=== PATIENT | female | born 1990 | race Caucasian/White ===

== ENCOUNTER → 2017-09-08 | Outpatient (CLI) | payer OTHER ==
[2015-10-21 13:04] VITALS: BP 95/64
[~2017-09-08] MED LIST: IBUP-1060 PO
--- NOTE | 2017-09-08 16:25 | RAD ---
Ultrasound pelvis Indication: Anatomy scan. Technique: Grayscale, color Doppler and spectral waveform ultrasound images of the pelvis. Comparison: None Findings: Single intrauterine is noted in breech position at the time of scanning. Cardiac activity is demonstrated at the rate of 150 bpm. Biparietal diameter measures 4.73 cm corresponding to estimated gestation age of 20 weeks 2 days. Placenta is posterior and fundal. Feet, legs, bladder, kidneys, spine, stomach, four-chamber heart, arms, cord insertion are visualized. Three-vessel cord noted. FRIEDA equals 19.4 cm which is within normal limits. Femoral length measures 3.28 cm corresponding to estimated gestation age of 20 weeks 2 days. Abdominal circumference measures 15.68 cm corresponding to estimated gestation age of 20 weeks 6 days. Cervix measures 3.7 cm in length and is within normal limits. Estimated weight 358 g. Estimated due date 01/23/2018. Female genitalia demonstrated. Impression: Single viable intrauterine with gestation age of 20 weeks 3 days and due date of 01/23/2018.
== END | disposition home or self-care (01) ==
LOC: US 12:11
PROVIDERS: ATTEND Obstetrics & Gynecology
DX: O09.92 Supervision of high risk pregnancy, unspecified, second trimester (principal); Z3A.20 20 weeks gestation of pregnancy
CPT/HCPCS: 76805

== ENCOUNTER 2017-09-29 18:38 | Observation (INO) | payer OTHER ==
[2017-09-29] MEDS: IV RINGERS,LACTATED 1000ML 1,000 ML IV (19:28)
[2017-09-29 19:40] LABS: BILIRUBIN,URINE NEGATIVE (NEG); CLARITY,URINE CLEAR; COLOR,URINE YELLOW; GLUCOSE,URINE NEGATIVE (NEG); NITRITE,URINE NEGATIVE (NEG); PH,URINE 6.5; PROTEIN,URINE NEGATIVE (NEG-TRACE)
[2017-09-29 19:44] LABS: BACTERIA,URINE FEW /HPF (0-FEW); RBC,URINE OCC /HPF (0-2); SQUAMOUS EPITHELIAL CELL,UR MANY /LPF
[2017-09-29 19:45] LABS: BARBITURATES NEG (NEG); BENZODIAZEPINES NEG (NEG); CANNABINOIDS POS (NEG); COCAINE NEG (NEG); METHADONE NEG (NEG); OPIATES NEG (NEG); PHENCYCLIDINE NEG (NEG)
[2017-09-29 19:46] LABS: AMPHETAMINE/METHAMPHETAMINE NEG (NEG); ETHANOL, URINE NEG (NEG)
[2017-09-29] MEDS ORDERED: IV RINGERS,LACTATED 500ML 1,000 ML IV (20:00)
[2017-09-29] MEDS: ONDANSETRON PF 4 MG/2 ML VIAL. IV (20:23)
[2017-09-29] MEDS: PANTOPRAZOLE IV PUSH 40 MG VIAL. IVP (20:34)
[2017-09-29] MEDS: IV RINGERS,LACTATED 500ML 500 ML IV (21:32)
== END 2017-09-29 22:44 | disposition home or self-care (01) ==
LOC: 3 SO LND 18:38
DX: O21.2 Late vomiting of pregnancy (principal); O26.892 Other specified pregnancy related conditions, second trimester; R51 Headache; R11.0 Nausea; R50.9 Fever, unspecified; Z3A.23 23 weeks gestation of pregnancy
CPT/HCPCS: 80307; 81001; 87086; 96361; 96374; 96375; C9113; G0378; G0379; J2405; J7120

== ENCOUNTER 2017-12-06 20:34 | Observation (INO) | payer OTHER ==
[2017-12-06 21:33] LABS: BILIRUBIN,URINE NEGATIVE (NEG); CLARITY,URINE CLEAR; COLOR,URINE YELLOW; GLUCOSE,URINE NEGATIVE (NEG); NITRITE,URINE NEGATIVE (NEG); PH,URINE 7.5; PROTEIN,URINE NEGATIVE (NEG-TRACE)
[2017-12-06 21:41] LABS: BACTERIA,URINE FEW /HPF (0-FEW); RBC,URINE 0 /HPF (0-2); SQUAMOUS EPITHELIAL CELL,UR MOD /LPF; WBC,URINE OCC /HPF (0-4)
[2017-12-06 21:42] LABS: BARBITURATES NEG (NEG); BENZODIAZEPINES NEG (NEG); CANNABINOIDS POS (NEG); COCAINE NEG (NEG); METHADONE NEG (NEG); OPIATES NEG (NEG); PHENCYCLIDINE NEG (NEG)
[2017-12-06 21:43] LABS: AMPHETAMINE/METHAMPHETAMINE NEG (NEG); ETHANOL, URINE NEG (NEG)
[2017-12-06] MEDS: IV RINGERS,LACTATED 1000ML 1,000 ML IV (22:05)
== END 2017-12-06 23:09 | disposition home or self-care (01) ==
LOC: 3 SO LND 20:34
DX: O62.9 Abnormality of forces of labor, unspecified (principal); Z3A.32 32 weeks gestation of pregnancy; Z79.899 Other long term (current) drug therapy
CPT/HCPCS: 80307; 81001; 96360; G0378; G0379; J7120

== ENCOUNTER 2018-01-05 23:34 | Observation (INO) | payer OTHER ==
[2018-01-05] MEDS ORDERED: IV RINGERS,LACTATED 1000ML 1,000 ML IV (23:42)
[2018-01-06 00:08] LABS: BILIRUBIN,URINE NEGATIVE (NEG); CLARITY,URINE CLOUDY; COLOR,URINE YELLOW; GLUCOSE,URINE NEGATIVE (NEG); NITRITE,URINE NEGATIVE (NEG); PH,URINE 7.5; PROTEIN,URINE NEGATIVE (NEG-TRACE)
[2018-01-06 00:13] LABS: AMORPHOUS SEDIMENT,UR PRESENT /HPF; BACTERIA,URINE FEW /HPF (0-FEW); RBC,URINE OCC /HPF (0-2); SQUAMOUS EPITHELIAL CELL,UR MANY /LPF
[2018-01-06 00:15] LABS: BARBITURATES NEG (NEG); BENZODIAZEPINES NEG (NEG); CANNABINOIDS POS (NEG); COCAINE NEG (NEG); METHADONE NEG (NEG); OPIATES NEG (NEG); PHENCYCLIDINE NEG (NEG)
[2018-01-06 00:16] LABS: AMPHETAMINE/METHAMPHETAMINE NEG (NEG); ETHANOL, URINE NEG (NEG)
== END 2018-01-06 01:39 | disposition home or self-care (01) ==
LOC: 3 SO LND 23:34
DX: O62.9 Abnormality of forces of labor, unspecified (principal); Z3A.37 37 weeks gestation of pregnancy
CPT/HCPCS: 80307; 81001; G0378; G0379

== ENCOUNTER 2018-03-05 06:35 | Day surgery (SDC) | payer OTHER ==
[2018-03-05] MEDS ORDERED: MORPHINE SULFATE 2 MG/ML DISP.SYRIN. IV (07:00)
[2018-03-05] MEDS ORDERED: fentaNYL PF VIAL 100 MCG/2 ML VIAL IV (07:00)
[2018-03-05] MEDS ORDERED: ONDANSETRON PF 4 MG/2 ML VIAL. IV (07:00)
[2018-03-05] MEDS ORDERED: LIDOCAINE 1% PF 2 ML VIAL. ID (07:00)
[2018-03-05 07:14] LABS: NEG OBC UR NEG; POS OBC UR POS; U PREG PATIENT NEGATIVE (NEG)
[2018-03-05] MEDS: IV RINGERS,LACTATED 1000ML 1,000 ML IV (07:24)
[2018-03-05] MEDS ORDERED: ROCURONIUM 50 MG/5 ML VIAL. (09:14)
[2018-03-05] MEDS ORDERED: fentaNYL PF VIAL 100 MCG/2 ML VIAL ×3 (09:14→11:26)
[2018-03-05] MEDS ORDERED: PROPOFOL 20 ML IV (09:15)
[2018-03-05] MEDS ORDERED: ONDANSETRON PF 4 MG/2 ML VIAL. (09:15)
[2018-03-05] MEDS ORDERED: DEXAMETHASONE SOD PHOS 20 MG/5 ML VIAL. (09:15)
[2018-03-05] MEDS ORDERED: SEVOFLURANE 16 TO 30 MINUTES. IH (09:15)
[2018-03-05] MEDS ORDERED: NEOSTIGMINE 10 MG/10 ML VIAL. ×2 (09:37→09:38)
[2018-03-05] MEDS ORDERED: GLYCOPYRROLATE 1 MG/5 ML VIAL. (09:37)
[2018-03-05] MEDS ORDERED: KETOROLAC 30 MG/ML INJ FOR OR. INJ (09:39)
[2018-03-05] MEDS: BUPIVACAINE-EPI 0.25%-1:200000 50 ML VIAL. (09:43)
[2018-03-05] MEDS ORDERED: PROCHLORPERAZINE 10 MG/2 ML VIAL. (10:31)
[2018-03-05] MEDS: fentaNYL PF VIAL 100 MCG/2 ML VIAL IV ×3 (10:44→11:33)
[2018-03-05] MEDS: PROCHLORPERAZINE 10 MG/2 ML VIAL. IV (11:00)
[2018-03-05] MEDS ORDERED: oxyCODONE/APAP 5/325 1 TAB TABLET PO (11:00)
[2018-03-05] MEDS: oxyCODONE/APAP 5/325 1 TAB TABLET PO (11:26)
== END 2018-03-05 12:18 | disposition home or self-care (01) ==
LOC: SURG 06:35
DX: Z30.2 Encounter for sterilization (principal); Z91.040 Latex allergy status; Z90.49 Acquired absence of other specified parts of digestive tract; F32.9 Major depressive disorder, single episode, unspecified; Z72.89 Other problems related to lifestyle; F17.200 Nicotine dependence, unspecified, uncomplicated; F19.90 Other psychoactive substance use, unspecified, uncomplicated
CPT/HCPCS: 58671; 81025; J0780; J1100; J1885; J2405; J2704; J2710; J3010; J3490

== ENCOUNTER 2018-07-02 06:26 | Day surgery (SDC) | payer OTHER ==
[~2018-07-02 06:26] MED LIST changes: +FERRIC SUBSULFATE 8 ML SOL.W.APPL TP ONE; +HYDR-971 PO; +LIDOCAINE 1%/EPI 1:100,000 20 ML VIAL. ONE; +NAPR-514 PO; +OXYC-323 PO
[2018-07-02] MEDS ORDERED: ONDANSETRON PF 4 MG/2 ML VIAL. IV PRN (07:00)
[2018-07-02] MEDS ORDERED: fentaNYL PF VIAL 100 MCG/2 ML VIAL IV PRN ×2 (07:00)
[2018-07-02] MEDS ORDERED: LIDOCAINE 1% PF 2 ML VIAL. ID PRN (07:00)
[2018-07-02] MEDS ORDERED: PROCHLORPERAZINE 10 MG/2 ML VIAL. IV PRN (07:00)
[2018-07-02] MEDS ORDERED: MORPHINE SULFATE 2 MG/ML VIAL. IV PRN (07:00)
[2018-07-02] MEDS ORDERED: HYDROmorphone 2 MG/ML VIAL IV PRN (07:00)
[2018-07-02] MEDS ORDERED: IV RINGERS,LACTATED 1000ML 1,000 ML IV SCH (07:00)
[2018-07-02 07:11] LABS: U PREG PATIENT NEGATIVE (NEG)
[2018-07-02] MEDS ORDERED: FAMOTIDINE 20 MG/2 ML VIAL ONE (07:29)
[2018-07-02] MEDS ORDERED: ONDANSETRON PF 4 MG/2 ML VIAL. ONE (07:29)
[2018-07-02] MEDS ORDERED: DEXAMETHASONE SOD PHOS 20 MG/5 ML VIAL. ONE (07:29)
[2018-07-02] MEDS ORDERED: PROPOFOL 20 ML IV ONE (07:30)
[2018-07-02] MEDS ORDERED: KETOROLAC 30 MG/ML INJ FOR OR. INJ ONE ×2 (07:30→08:28)
[2018-07-02] MEDS ORDERED: MIDAZOLAM HCL/PF 2 MG/2 ML VIAL. ONE ×2 (07:30→07:51)
[2018-07-02] MEDS ORDERED: LIDOCAINE 2% PF Vial for OR 5 ML VIAL. ONE (07:30)
--- NOTE | 2018-07-02 08:29 | DISCH ---
DISCHARGE INSTRUCTIONS Condition on Discharge Condition on Discharge: Stable Activity After Discharge Activity Instructions for Disc: Activity as tolerated Lifting Instructions after Dis: No heavy lifting Exercise Instruction after Dis: Progress as tolerated Driving Instructions after Dis: Do not drive today, Other, see below Diet after Discharge Diet after Discharge: Regular Contacting the DRShankar after DC Call your doctor for: Concerns you may have Follow-Up Follow up with: Dr. Cullen in 2 wks Treatment/Equipment after DC Adaptive Equipment Issued: None MICHAEL CULLEN Jr, MD Jul 02, 2018 08:29
--- NOTE | 2018-07-02 08:29 | PDOC ---
BRIEF OPERATIVE NOTE Date: Jul 02, 2018 Pre-Op Diagnosis Cervical Dysplasia Post-Op Diagnosis SAme Procedure Performed Cervical cone bx Surgeon Dr. Cullen Anesthesia Type: General Blood Loss Less than 10 ml Specimens Obtained cervical cone bx Findings cervical dysplasia Complications none Operative Note see dictation MICHAEL CULLEN Jr, MD Jul 02, 2018 08:29
[2018-07-02] MEDS ORDERED: SEVOFLURANE 16 TO 30 MINUTES. IH ONE (08:34)
[2018-07-02] MEDS ORDERED: HYDR-971 PO (08:37)
[2018-07-02] MEDS ORDERED: HYDROcodone/APAP 5/325MG 1 TAB TABLET PO ONE ×2 (09:00)
[2018-07-02 10:15] VITALS: BP 111/63
--- NOTE | 2018-07-02 10:43 | OP ---
DATE OF SURGERY: PREOPERATIVE DIAGNOSIS: Cervical dysplasia. POSTOPERATIVE DIAGNOSIS: Cervical dysplasia. PROCEDURE: Cervical cone biopsy. SURGEON: Michael Lezama M.D. ANESTHESIA: GETA. ESTIMATED BLOOD LOSS: Less than 10 mL. COMPLICATIONS: None. FINDINGS: Cervical dysplasia. SUMMARY: A 27-year-old with LYUDMILA 1 on colposcopic biopsy, requiring cervical cone biopsy. She was counseled on the risks, benefits and expectations and voiced clear understanding to proceed. DESCRIPTION OF PROCEDURE: The patient was taken to the surgery suite and placed in dorsal lithotomy position, where she was prepped with Betadine solution and draped in a sterile fashion. After adequate anesthesia, weighted speculum and curved Ramah placed vaginally. The anterior lip of the cervix grasped with a single tooth tenaculum. Cervix was injected with lidocaine 1% with epinephrine in circumferential manner. A 2-0 Vicryl sutures were placed at 3 o'clock and 9 o'clock position to help stabilize the cervix. Cervical cone biopsy was performed with scalpel, removing anterior and posterior lip of the cervix in a cone-like fashion. The remaining cervix was cauterized with Bovie cautery and Monsel solution was also applied for better hemostasis. The single tooth tenaculum and weighted speculum were removed. The patient tolerated the procedure well and was sent to recovery room in stable condition. Sponge and needle count correct x 3. MICHAEL LEZAMA MD DR: SILVANA/dania JOB#: [id number] / [id number]
== END 2018-07-02 10:20 | disposition home or self-care (01) ==
LOC: SURG 06:26
PROVIDERS: ATTEND Obstetrics & Gynecology
DX: N87.9 Dysplasia of cervix uteri, unspecified (principal); F32.9 Major depressive disorder, single episode, unspecified; F17.200 Nicotine dependence, unspecified, uncomplicated; Z72.89 Other problems related to lifestyle; Z90.49 Acquired absence of other specified parts of digestive tract; Z91.040 Latex allergy status; Z98.890 Other specified postprocedural states
CPT/HCPCS: 57522; 81025; A7015; J0690; J1100; J1885; J2001; J2250; J2405; J2704; J3490; S0028

== ENCOUNTER → 2021-04-06 | Outpatient (CLI) | payer OTHER ==
[~2021-04-06] MED LIST changes: -FERRIC SUBSULFATE 8 ML SOL.W.APPL TP ONE; +HYDR-3164 PO; -HYDR-971 PO; -LIDOCAINE 1%/EPI 1:100,000 20 ML VIAL. ONE; +MEDR10TA3 PO; -OXYC-323 PO; +OXYC1TAB15 PO
[2021-04-06 12:35] LABS: BASO % 0 % (0-3); BILIRUBIN,URINE NEGATIVE (NEG); CLARITY,URINE CLEAR; COLOR,URINE YELLOW; EOS # 0.1 x10^3/uL (0.0-0.7); EOS % 1 % (0-3); HEMATOCRIT 42.9 % (36.0-47.0); HEMOGLOBIN 14.5 g/dL (12.0-15.5); LYMPH # 2.9 x10^3/uL (1.0-4.8); LYMPH % 34 % (24-48); MEAN CORPUSCULAR HEMOGLOBIN 31 pg (25-35); MEAN CORPUSCULAR HGB CONC 34 g/dL (31-37); MEAN CORPUSCULAR VOLUME 91 fL (79-100); MONO # 0.5 x10^3/uL (0.0-1.1); MONO % 6 % (0-9); NEUT % 58 % (31-73); NITRITE,URINE NEGATIVE (NEG); PLATELET COUNT 238 x10^3/uL (140-400); PROTEIN,URINE NEGATIVE (NEG-TRACE); RED BLOOD COUNT 4.73 x10^6/uL (3.50-5.40); RED CELL DISTRIBUTION WIDTH 13.4 % (11.5-14.5); UROBILINOGEN,URINE 0.2 mg/dL (0.2 mg/dL); WHITE BLOOD COUNT 8.5 x10^3/uL (4.0-11.0)
[2021-04-06 12:41] LABS: ALBUMIN 4.1 g/dL (3.4-5.0); ALBUMIN/GLOBULIN RATIO 1.4 (1.0-1.7); CREATININE 0.8 mg/dL (0.6-1.0); GFR 85.4; POTASSIUM 4.2 mmol/L (3.5-5.1); TOTAL BILIRUBIN 0.3 mg/dL (0.2-1.0); TOTAL PROTEIN 7.1 g/dL (6.4-8.2)
[2021-04-06 12:48] LABS: BACTERIA,URINE MODERATE /HPF (0-FEW)
== END ==
LOC: SURGPAT 11:13
PROVIDERS: ATTEND Obstetrics & Gynecology
DX: Z01.818 Encounter for other preprocedural examination (principal); Z90.722 Acquired absence of ovaries, bilateral; Z90.710 Acquired absence of both cervix and uterus
CPT/HCPCS: 36415; 80053; 81001; 85025; 87086

== ENCOUNTER → 2021-04-11 | Outpatient (CLI) | payer OTHER ==
[~2021-04-11] MED LIST changes: +IBUP-571 PO
== END ==
LOC: LAB 09:32
PROVIDERS: ATTEND Obstetrics & Gynecology
DX: Z01.812 Encounter for preprocedural laboratory examination (principal); Z20.822 Contact with and (suspected) exposure to COVID-19
CPT/HCPCS: U0003; U0005

== ENCOUNTER 2021-04-12 06:03 | Observation (INO) | payer OTHER ==
[2021-04-12] VITALS (11 sets, daily range): BP systolic 94–112; BP diastolic 55–70
[~2021-04-12] VITALS: Ht 157.5 cm; Wt 42.9 kg
[~2021-04-12 06:03] MED LIST changes: +HYDROmorphone 2 MG/ML VIAL IVP PRN; -IBUP-571 PO; +IV RINGERS,LACTATED 1000ML 1,000 ML IV SCH; +MORPHINE SULFATE 2 MG/ML INJ. IVP PRN; +PROCHLORPERAZINE 10 MG/2 ML VIAL. IVP PRN; +ceFAZolin SODIUM IV Push 1 GM VIAL. IVP PRN; +fentaNYL PF VIAL 100 MCG/2 ML VIAL IVP PRN
[2021-04-12] MEDS ORDERED: ROCURONIUM 50 MG/5 ML VIAL. ONE (06:47)
[2021-04-12] MEDS ORDERED: DEXAMETHASONE SOD PHOS 4 MG/ML VIAL ONE (06:48)
[2021-04-12] MEDS ORDERED: LIDOCAINE 2% PF 5 ML VIAL. ONE ×2 (06:48→09:34)
[2021-04-12] MEDS ORDERED: ONDANSETRON PF 4 MG/2 ML VIAL. ONE (06:48)
[2021-04-12] MEDS ORDERED: PROPOFOL 10 MG/ML (20ML) VIAL. IV ONE (06:48)
[2021-04-12] MEDS ORDERED: MIDAZOLAM HCL/PF 2 MG/2 ML VIAL. ONE (07:01)
[2021-04-12] MEDS ORDERED: fentaNYL PF VIAL 100 MCG/2 ML VIAL ONE ×2 (07:01→10:46)
[2021-04-12] MEDS ORDERED: KETAMINE HCL IN NACL, ISO-OSM 50 MG/5 ML SYRINGE ONE (07:01)
[2021-04-12] MEDS ORDERED: BUPIVACAINE-EPI 0.5%-1:200000 MPF 30 ML VIAL. ONE (07:02)
[2021-04-12] MEDS ORDERED: ESTROGENS, CONJ VAGINAL CREAM 30GM TUBE. ONE (07:02)
[2021-04-12] MEDS ORDERED: INDIGOTINDISULFONATE SODIUM 40 MG/5 ML AMPUL. ONE (07:02)
[2021-04-12] MEDS ORDERED: BUPIVACAINE-EPI 0.25%-1:200000 MPF 30 ML VIAL. INJ ONE (07:15)
[2021-04-12] MEDS ORDERED: HYDROmorphone 2 MG/ML VIAL ONE (08:35)
[2021-04-12] MEDS ORDERED: GLYCOPYRROLATE 1 MG/5 ML VIAL. ONE (08:35)
[2021-04-12] MEDS ORDERED: NEOSTIGMINE METHYLSULFATE 5 MG/5 ML SYRINGE. ONE (08:35)
[2021-04-12] MEDS ORDERED: SEVOFLURANE > 120 MINUTES. IH ONE (09:18)
--- NOTE | 2021-04-12 09:55 | PDOC ---
BRIEF OPERATIVE NOTE Date: Apr 12, 2021 Pre-Op Diagnosis pelvic pain, menorrhagia, polymenorrhea Post-Op Diagnosis same Procedure Performed LAVH/bilateral salpingectomy, lysis of adhesions and removal of surgical ceci Surgeon Dr. Ayla Adams Fibre Technologist MOISÉS Alvarez Anesthesiologist Dr. Youngblood Anesthesia Type: General Blood Loss 70cc IV Fluid 1L Urine Output 90cc via velasquez Specimens Obtained cervix, uterus, bilateral tubes Findings ceci splayed from prior appy normal uterus, bilateral tubes with clips falling off, normal ovaries appendix gone N RUQ liver area some L US ligament scarring and left sided adhesions that were taken down Complications none Operative Note [id number] AYLA ADAMS MD Apr 12, 2021 09:55
[2021-04-12] MEDS ORDERED: LACTULOSE 20 GM/30 ML SOLUTION. PO PRN (10:00)
[2021-04-12] MEDS ORDERED: SIMETHICONE 80 MG TAB.CHEW PO PRN (10:00)
[2021-04-12] MEDS ORDERED: NALOXONE 0.4 MG/ML VIAL. IV PRN (10:00)
[2021-04-12] MEDS ORDERED: MAGNESIUM HYDROXIDE 2,400 MG/30 ML ORAL.SUSP. PO PRN (10:00)
[2021-04-12] MEDS ORDERED: diphenhydrAMINE HCL 25 MG CAPSULE PO PRN (10:00)
[2021-04-12] MEDS ORDERED: diphenhydrAMINE 50 MG/ML VIAL IV PRN (10:00)
[2021-04-12] MEDS ORDERED: MAG HYDROX/ALUMINUM HYD/SIMETH 30 ML ORAL.SUSP PO PRN (10:00)
[2021-04-12] MEDS ORDERED: 0.9 % SODIUM CHLORIDE 10 ML DISP.SYRIN. IV PRN (10:00)
[2021-04-12] MEDS ORDERED: MORPHINE SULFATE 2 MG/ML INJ. IV PRN (10:00)
[2021-04-12] MEDS ORDERED: ONDANSETRON PF 4 MG/2 ML VIAL. IV PRN (10:00)
[2021-04-12] MEDS ORDERED: CALCIUM CARBONATE 500 MG TAB.CHEW PO PRN (10:00)
[2021-04-12] MEDS: fentaNYL PF VIAL 100 MCG/2 ML VIAL IVP PRN ×2 (10:49→11:01)
--- NOTE | 2021-04-12 11:12 | NUR ---
Arrived to unit by bed from PACU. Awake during transferred but now sedated. Received compazine prior to transfer. VS stable. SCD's on bilaterally. IVF's intact and infusing. Abdominal lap sites x's 3 d/i with ice pack. Side rails up x's 3 with call light in reach. Cont. monitor.
--- NOTE | 2021-04-12 12:55 | OP ---
DATE OF SURGERY: 04/12/2021 PREOPERATIVE DIAGNOSES: Pelvic pain, menorrhagia, polymenorrhea. POSTOPERATIVE DIAGNOSES: Pelvic pain, menorrhagia, polymenorrhea. PROCEDURE: Laparoscopic-assisted vaginal hysterectomy, bilateral salpingectomy, lysis of adhesions and removal of surgical ceci. SURGEON: Ayla Adams MD DIRECTOR STATE [facility]ARMAC[facility]: MOISÉS Alvarez ANESTHESIOLOGIST: Soham Youngblood MD ANESTHESIA: General. BLOOD LOSS: 70 mL. URINE OUTPUT: 90 mL via Larkin catheter. FLUIDS: 1 liter of crystalloid. SPECIMENS: Cervix; uterus; bilateral tubes, the left one was detached. FINDINGS: She had a small retroverted uterus ceci that had splayed on especially the anterior bladder area that were removed. Normal bilateral ovaries. Tubes were normal, but she had clips falling off of both of them that were hanging down in the cul-de-sac. She had some scarring on the left uterosacral ligament and then of course the adhesions on the left side to the IP ligament that were taken down. COMPLICATIONS: None. DESCRIPTION OF PROCEDURE: This patient was taken to the operating room where general anesthesia was placed. The patient was placed in a dorsal lithotomy position in [facility]. The patient's abdomen and vagina were both prepped and draped in the normal sterile fashion and a Larkin catheter had been inserted under sterile technique. Upon my arrival, a time-out was performed. Once everyone agreed on the patient, the site, the procedure, the antibiotics, the procedure was initiated. A bivalve speculum was placed in the patient's vagina. Single-tooth tenaculum was used to grasp the anterior lip of the cervix. 10 mL of 0.25% Marcaine with epinephrine was used to circumferentially inject around the cervix for both hemodissection and hemostatic purposes later. The Valtchev uterine manipulator was placed through the endocervical os, locked on the single-tooth tenaculum and the bivalve speculum was then removed. Top gloves were discarded and changed. Attention was then turned to the abdomen where a small infraumbilical skin incision was made over the existing scar. A curved Lauren was used to dissect through the subcuticular layer to the fascia. The 5 mm Visiport was placed in the abdominal cavity. Opening patient pressure was 2 mmHg. Carbon dioxide gas was used to appropriately insufflate the abdominal cavity to maintain a pressure of 15 mmHg. The overhead lights were dimmed. The patient was placed in Trendelenburg position. At this point, right and left lower quadrant ports were placed after transilluminating the abdominal wall, finding an area clear of any vasculature, making a small incision and placing 5 mm atraumatic trocars and under direct visualization, 4-5 mL of air were placed in the trocar cuff. Once this was done, the camera was moved laterally to look at the umbilical port. Once it was assured to be in and good, it was also insufflated with the 4-5 mL of air in the trocar cuff. At this point, right upper quadrant looked normal. The area where the appendix was had ceci on it appropriately, but some ceci have splayed into the abdominal cavity. A large area was on the bladder anteriorly, so these were cut off and removed. The clips were falling off both tubes. Ureters were seen coursing below in the pelvis normally. She had a little bit of scarring on the left uterosacral ligament and left bowel adhesions going down the left IP and almost to the round. Those were taken down as well. Both ureters were seen coursing low in the pelvis. So, since the ovaries were normal, we went above the ovary, below the tube with the LigaSure, doing bilateral salpingectomy, crossing the left uteroovarian pedicle and the left round ligament and then the same thing on the right, going above the right ovary below the tube, doing a salpingectomy, crossing the right uteroovarian pedicle and then the right round ligament, all with the LigaSure. Once this was done, the bladder flap was created sharply pushing the uterus cephalad to the head of the bed and then picking up the bladder flap and using the monopolar hook to go across and create the bladder flap sharply and pulling it down. The uterine vessels were obtained on the right side, staying inside that pedicle, hugging posteriorly, going through the cardinal and broad ligaments and then crossing contralaterally, getting the uterines on the left side and hugging the uterus and staying vertical inside that pedicle through the cardinal and broad ligaments down to the uterosacral. The uterus was completely blanched and free. There was no bleeding. The uterus was completely free and blanched. So, all instruments were removed from the abdomen and attention was turned vaginally. The single tooth and Valtchev were removed. A weighted speculum was placed in the patient's vagina. Thyroid Darrius clamps were placed on the anterior and posterior lips of the cervix respectively. A scalpel was used to make a circumferential incision in the cervix and the posterior cul-de-sac was sharply entered with curved Gonzalez scissors. A #0 Vicryl stitch was used to secure the posterior peritoneum here to the vaginal cuff. It was tagged with a curved Lauren clamp. The needle was cut and passed off. The short weighted vaginal speculum was removed and replaced with the long weighted Nacho speculum in the posterior cul-de-sac. The bladder flap was taken off sharply and bluntly. Once it was released sharply from the cervix, an open Ray-Kayy 4 x 4 was used to gently peel it up and we entered the anterior cul-de-sac. The Ray-Kayy was removed and the curved [place] was placed in the anterior cul-de-sac. Curved Jacobo clamps x 2 were placed on the patient's left uterosacral ligament where they were doubly clamped with curved Heaneys, cut with curved Gonzalez scissors and suture ligated x 2 with 0 Vicryl. Second one was taken through the vaginal cuff securing uterosacral ligament to the vaginal cuff. This was done exactly the same on the right side, double clamping the uterosacrals with curved Jacobo's, cutting with curved Gonzalez scissors, suture ligating x 2 with 0 Vicryl, taking the second one through the vaginal cuff, tagging it with a straight Lauren clamp and cutting and passing the needle off. The remaining pedicles on both sides were delineated with the right angle and the vaginal LigaSure was used to cauterize and cut them. Cervix, uterus, right tube were delivered. Left tube had come off during manipulation as it was hanging by a thread on the other side of that clip and it was found and removed as well. So, cervix, uterus, bilateral tubes as the specimen, left detached, right attached. Sponge stick was used to examine all the pedicles. A long Allis was used to grasp the anterior bladder peritoneum. The long Nacho speculum was removed and the short weighted vaginal speculum was replaced. Full length 2-0 Vicryl was taken through the anterior bladder peritoneum, left uterosacral ligament, posterior peritoneum and right uterosacral ligament, thus closing the peritoneum in a pursestring like fashion. Once this was done, the right and left uterosacral tags were clipped and the cuff was closed with a full length Vicryl in an anterior to posterior running locked fashion and tied to that posterior cuff tag. It was completely hemostatic and dry. All sponge, lap and needle counts had been correct x 2 by OR personnel below before going above. All gloves were discarded and changed. Attention was turned back above for a second look where she was reinsufflated. Copious irrigation revealed hemostasis. Tisseel was placed over the pedicles with excellent results. Right and left pericolic gutters were clear. There was no bleeding. Both ovaries were left intact, so all 3 of the trocars, the 4-5 mL of air were taken out of the trocar cuff. The right one was removed, it was hemostatic. The left one was removed, it was hemostatic. Gas was removed from the umbilical one and it was removed. All 3 port sites were closed with 4-0 nylon at the skin and injected with local. The patient was awakened from anesthesia and brought to recovery room in stable condition. ETHAN/TYRESE/ROHITH DR: Opal TID: [id number]
[2021-04-12] MEDS: oxyCODONE/APAP 5/325 1 TAB TABLET PO PRN ×3 (13:47→21:03)
--- NOTE | 2021-04-12 17:00 | NUR ---
Ambulating to bathroom with 1 assist. Voiding without difficulty. Eating and drinking without any nausea or vomiting. Resting in bed. Heat packs given to place one on her lower back and other on abdomen. Side rails up x's 2 with call light in reach. Cont. monitor.
[2021-04-12] MEDS: ZOLPIDEM 5 MG TABLET. PO PRN (21:03)
[2021-04-13] MEDS: ZOLPIDEM 5 MG TABLET. PO PRN (00:05)
[2021-04-13] MEDS: IBUPROFEN 200 MG TABLET. PO PRN ×2 (00:05→08:02)
[2021-04-13] MEDS: oxyCODONE/APAP 5/325 1 TAB TABLET PO PRN ×3 (02:02→09:35)
[2021-04-13 02:08] VITALS: BP 118/81
[2021-04-13 05:39] VITALS: BP 131/67
--- NOTE | 2021-04-13 07:14 | NUR ---
Patient c/o nausea. Zofran slow IVP given per order.
[2021-04-13 08:13] LABS: CALCIUM 8.2 mg/dL (8.5-10.1); CREATININE 0.7 mg/dL (0.6-1.0); GFR 99.6
--- NOTE | 2021-04-13 08:48 | PDOC ---
SURGICAL PROGRESS NOTE DATE: 04/13/21 TIME: 08:32 Subjective Up ambulating the room, tolerating regular diet. Scant VB, voiding well without catheter. Vital Signs Vital Signs Date Time Temp Pulse Resp B/P (MAP) Pulse Ox O2 Delivery O2 Flow Rate FiO2 04/13/21 06:36 18 97 Room Air 04/13/21 05:39 98.0 96 131/67 (88) 98.0 04/12/21 10:20 6 I&O Intake and Output 04/13/21 07:00 Intake Total 2540 ml Output Total 2385 ml Balance 155 ml Intake Oral 1340 ml IV Total 1200 ml Output Urine Total 2315 ml Estimated Blood Loss 70 ml PATIENT HAS A ENRIQUEZ: No General: Alert, Oriented X3, Cooperative, mild distress HEENT: Atraumatic Heart: Regular rate Abdomen: Soft, No tenderness, No masses, Other (all port sites c/d/i) Extremities: No clubbing, No cyanosis, No edema Skin: No rashes, No breakdown, No significant lesion Neuro: Normal speech Psych/Mental Status: Mental status NL, Mood NL Labs Laboratory Tests Test 04/12/21 05:35 04/13/21 07:05 Bedside Urine HCG, Qualitative Hcg negative (Negative) Hematocrit 37.0 % (36.0-47.0) Sodium Level 141 mmol/L (136-145) Potassium Level 4.0 mmol/L (3.5-5.1) Chloride Level 107 mmol/L (98-107) Carbon Dioxide Level 24 mmol/L (21-32) Anion Gap 10 (6-14) Blood Urea Nitrogen 4 mg/dL (7-20) Creatinine 0.7 mg/dL (0.6-1.0) Estimated GFR (Cockcroft-Gault) 99.6 Glucose Level 81 mg/dL (70-99) Calcium Level 8.2 mg/dL (8.5-10.1) Laboratory Tests Test 04/13/21 07:05 Hematocrit 37.0 % (36.0-47.0) Sodium Level 141 mmol/L (136-145) Potassium Level 4.0 mmol/L (3.5-5.1) Chloride Level 107 mmol/L (98-107) Carbon Dioxide Level 24 mmol/L (21-32) Anion Gap 10 (6-14) Blood Urea Nitrogen 4 mg/dL (7-20) Creatinine 0.7 mg/dL (0.6-1.0) Estimated GFR (Cockcroft-Gault) 99.6 Glucose Level 81 mg/dL (70-99) Calcium Level 8.2 mg/dL (8.5-10.1) I have reviewed the following labs, vitals, nursing Cardiovascular: No pertinent hx Pulmonary: No pertinent hx GI: No pertinent hx Heme/Onc: No pertinent hx Psych: No pertinent hx Rheumatologic: No pertinent hx ENT: No pertinent hx Assessment/Plan POD#1 s/p LAVH/bilateral salpingectomy and adhesiolysis Routine PO care AFVSS, labs good this am tolerating regular diet voding well will be d/c to home later today already has Percocet at home NO driving on narcotic pain meds OK for OTC ibuprofen keep scheduled follow up with me next week in the office call or return sooner for any other questions or concerns not limited to but including pain unrelieved with pain meds, increased or unexplained vb, or T>100.4 Justicifation of Admission Dx: Justifications for Admission: Justification of Admission Dx: Yes OMARI FRAUSTO MD Apr 13, 2021 08:48
--- NOTE | 2021-04-13 08:50 | PDOC3 ---
Discharge Summary Visit Information Date of Admission: Apr 12, 2021 Date of Discharge: Apr 13, 2021 Final Diagnosis pelvic pain, menorrhagia, polymenorrhea, dysmenorrhea Brief Hospital Course Allergies Allergies Coded Allergies Type Severity Reaction Last Updated Verified latex Allergy Severe Swelling 07/02/18 Yes Vital Signs Vital Signs Date Time Temp Pulse Resp B/P (MAP) Pulse Ox O2 Delivery O2 Flow Rate FiO2 04/13/21 06:36 18 97 Room Air 04/13/21 05:39 98.0 96 131/67 (88) 98.0 04/12/21 10:20 6 Lab Results Laboratory Tests Test 04/12/21 05:35 04/13/21 07:05 Bedside Urine HCG, Qualitative Hcg negative (Negative) Hematocrit 37.0 % (36.0-47.0) Sodium Level 141 mmol/L (136-145) Potassium Level 4.0 mmol/L (3.5-5.1) Chloride Level 107 mmol/L (98-107) Carbon Dioxide Level 24 mmol/L (21-32) Anion Gap 10 (6-14) Blood Urea Nitrogen 4 mg/dL (7-20) Creatinine 0.7 mg/dL (0.6-1.0) Estimated GFR (Cockcroft-Gault) 99.6 Glucose Level 81 mg/dL (70-99) Calcium Level 8.2 mg/dL (8.5-10.1) Laboratory Tests Test 04/13/21 07:05 Hematocrit 37.0 % (36.0-47.0) Sodium Level 141 mmol/L (136-145) Potassium Level 4.0 mmol/L (3.5-5.1) Chloride Level 107 mmol/L (98-107) Carbon Dioxide Level 24 mmol/L (21-32) Anion Gap 10 (6-14) Blood Urea Nitrogen 4 mg/dL (7-20) Creatinine 0.7 mg/dL (0.6-1.0) Estimated GFR (Cockcroft-Gault) 99.6 Glucose Level 81 mg/dL (70-99) Calcium Level 8.2 mg/dL (8.5-10.1) Brief Hospital Course Ms. Evangelista is a 30 old female who presented with pelvic pain, dysmenorrhea, polymenorrhea, menorrhagia. She wanted definitive therapy since multiparous and already made choice and had permanent sterilization. She underwent LAVH, bilateral salpingectomy and adhesiolysis yesterday without complication. Routine PO care. Voiding without catheter, ambulating well, tolerating regular diet and scant VB Assessment Assessment POD#1 s/p LAVH/bilateral salpingectomy and adhesiolysis Routine PO care AFVSS, labs good this am tolerating regular diet voding well will be d/c to home later today already has Percocet at home NO driving on narcotic pain meds OK for OTC ibuprofen keep scheduled follow up with me next week in the office call or return sooner for any other questions or concerns not limited to but including pain unrelieved with pain meds, increased or unexplained vb, or T>100.4 Discharge Information Condition at Discharge: Stable Follow Up: Weeks Disposition/Orders: D/C to Home Scheduled Medroxyprogesterone Acetate (Medroxyprogesterone Acetate) 10 Mg Tablet, 1 TAB PO DAILY for PTSD, #10 Ref 4 (Reported) Entered as Reported by: Rosa Elena Erazo on 04/06/21 1151 Patient Instructions Patient Instructions POD#1 s/p LAVH/bilateral salpingectomy and adhesiolysis Routine PO care AFVSS, labs good this am tolerating regular diet voding well will be d/c to home later today already has Percocet at home NO driving on narcotic pain meds OK for OTC ibuprofen keep scheduled follow up with me next week in the office call or return sooner for any other questions or concerns not limited to but including pain unrelieved with pain meds, increased or unexplained vb, or T>100.4 Justicifation of Admission Dx: Justifications for Admission: Justification of Admission Dx: Yes OMARI FRAUSTO MD Apr 13, 2021 08:50
[2021-04-13] MEDS ORDERED: OXYC1TAB15 PO (09:02)
[2021-04-13] MEDS ORDERED: IBUP-571 PO (09:03)
--- NOTE | 2021-04-13 09:39 | NUR ---
Patient left around 0940 with he filuiza. IV discontinued without complications. Discharge education completed by this nurse and Dr Adams prior to discharge. Appointment already scheduled for next week and pain medication given prior to admission to the hospital. Lap sites PAULETTE per Dr Adams. Patient showered prior to discharge and was taught to pat dry, not rub. Dressing given to patient for at home use and comfort purposes. No concerns noted at discharge.
--- NOTE | 2021-04-13 17:14 | PATHOLOGY ---
[facility] Accession Number: [id number] . 01 Material submitted: . uterus - CERVIX, UTERUS, BILATERAL TUBES . 01 Clinical history: . MENORRHAGIA LAVH . 02 Diagnosis: Uterus and attached right fallopian tube and detached left fallopian tube, laparoscopic assisted vaginal hysterectomy with bilateral salpingectomy: - Chronic cervicitis with focal atypical squamous metaplasia. - Low grade chronic endometritis. - Early secretory endometrium. - Congestion of bilateral fallopian tubes. - Right paratubal cyst. (JPM/db; 04/13/2021) LBQ 04/13/2021 1657 Local . 02 Electronically signed: . Torin Willams MD, Pathologist NPI- [id number] . 01 Gross description: . Fixative: Formalin Labeled: Cervix, uterus, bilateral tubes Specimen received: uterus with attached cervix and attached right fallopian tube. The left fallopian tube is identified separately within the container Uterus weight: 101 g Uterus: 8.0 x 6.0 x 4.3 cm Serosa: Pradhan and smooth Ectocervix: White, smooth and glistening Cervical os: Slitlike, measuring 1.3 cm Endocervical canal: 1.8 cm Endometrial cavity: 3.6 x 3.0 cm Endometrial thickness: 0.1 cm Myometrial thickness: 2.3 cm Lesions/abnormalities: None identified Right fallopian tube: 7.0 cm in length, 0.9 cm in diameter, present fimbria. Right fallopian tube appearance: The serosa appears pradhan-brown. Identified adjacent to the fimbriated end is a smooth walled, serous fluid-filled cysts measuring 0.5 x 0.4 x 0.4 cm. Attached to the right fallopian tube is a silver-colored, metal clip measuring 0.4 x 0.3 x 0.3 cm. Left fallopian tube: 5.0 cm in length, 0.7 cm in diameter, present fimbria Left fallopian tube appearance: Pradhan and smooth. A gross photograph is taken. . Fish Technologist sections are submitted as follows: A1 12:00 cervix A2 6:00 cervix A3 anterior endomyometrium A4 posterior endomyometrium A5 right fallopian tube A6 left fallopian tube (MRF; 04/12/2021) MFE/MFE 04/12/2021 2216 Local . 02 Pathologist provided ICD-10: N72, N87.9, N83.8 . 02 CPT . 437430 Specimen Comment: A courtesy copy of this report has been sent to [phone] Specimen Comment: Report sent to Performed at: 01 [facility] [address], [place] [id number] MD Dale Sullivan MD Phone: [phone] Performed at: 02 [facility] [address] [place], [place] [id number] MD Torin Willams MD Phone: [phone]
== END 2021-04-13 09:45 | disposition home or self-care (01) ==
LOC: SURG 06:03 → 4 SOUTHEST 10:00
PROVIDERS: ADMIT Obstetrics & Gynecology; ATTEND Obstetrics & Gynecology
DX: N92.0 Excessive and frequent menstruation with regular cycle (principal); R10.2 Pelvic and perineal pain; N94.6 Dysmenorrhea, unspecified; N85.4 Malposition of uterus; K66.0 Peritoneal adhesions (postprocedural) (postinfection)
CPT/HCPCS: 36415; 58552; 80048; 81025; 85014; 86850; 86900; 86901; 88307; 96361; 96374; A4344; A4930; A6219; G0378; G0379; J0690; J0780; J1100; J1170; J2250; J2405; J2704; J2710; J3010; J3480; J3490; Q0163; A4315; A4657